=== PATIENT | female | born 1995 | race American Indian/Alaskan Native ===

== ENCOUNTER 2017-06-08 05:31 | Inpatient (IN) | payer MEDICAID ==
[2017-06-08] MEDS ORDERED: BRETHINE IVP PRN (06:15)
[2017-06-08] MEDS ORDERED: XYLOCAINE 2% INFILTRATI ONE (06:15)
[2017-06-08] MEDS ORDERED: SUBLIMAZE IV PRN (06:15)
[2017-06-08] MEDS ORDERED: STADOL IV PRN (06:15)
[2017-06-08] MEDS ORDERED: ePHEDrine SULFATE IV PRN (06:15)
[2017-06-08] MEDS ORDERED: MINERAL OIL PO PRN (06:15)
[2017-06-08] MEDS ORDERED: ZOFRAN IV PRN ×2 (06:15→11:16)
[2017-06-08] MEDS ORDERED: BRETHINE SUB-Q PRN (06:15)
[2017-06-08] MEDS ORDERED: LACTATED RINGERS 1,000 ML IV SCH (07:00)
[2017-06-08] MEDS ORDERED: PITOCin/NS 20 UNIT/1000ML DRIP 20 UNITS/1,000 ML BAG IV SCH (07:00)
[2017-06-08] MEDS ORDERED: PITOCin/NS 30 UNIT/500ML 30 UNITS/500 ML BAG IV SCH (07:00)
[2017-06-08 07:21] LABS: Hematocrit 40.7 % (30.3-42.9); Hemoglobin 13.6 gm/dl (10.1-14.3); Mean Corpuscular HGB Conc 33 % (30-34); Mean Corpuscular Hemoglobin 27 pg (28-32); Mean Corpuscular Volume 82 fl (79-97); Platelet Count 167 K/mm3 (140-440); Red Blood Count 4.95 M/mm3 (3.65-5.03); Red Cell Distribution Width 14.9 % (13.2-15.2); White Blood Count 5.5 K/mm3 (4.5-11.0)
--- NOTE | 2017-06-08 09:08 | Procedure Note ---
OB Delivery Note - Delivery Date of Delivery: 06/08/17 Surgeon: MARLEN COREY Estimated blood loss: other (150) - Vaginal Delivery presentation: vertex Delivery position: OA Intrapartum events: precipitous labor- <3hr Delivery induction: none Delivery monitor: external FHT, external uterine Route of delivery: Delivery placenta: spontaneous Delivery cord: nuchal cord, 3 umbilical vessels Episiotomy: none Delivery laceration: vaginal side wall Anesthesia: none Delivery comments: Viable male delivered precipitously over intact perineum weight 6 pounds 8 ounces. Apgars 9,9. Loose nuchal cord easily reduced on the perineum. Placenta delivered spontaneously and intact with 3vc. Small periurethral laceration was hemostatic. Patient tolerated procedure well. - Infant A at 1 minute: 9 at 5 minutes: 9 Infant Gender: Male
--- NOTE | 2017-06-08 09:16 | History and Physical Report ---
History of Present Illness Date of examination: 06/08/17 Date of admission: 06/08/17 06:31 Chief complaint: My water broke History of present illness: Patient is a 22 year old who presented to L&D with srom at 39.2 weeks. Patient has had an uncomplicated course and has been in care since first trimester. Past History Past Medical History: no pertinent history Past Surgical History: no surgical history Social history: single - Obstetrical History Expected Date of Delivery: 06/13/17 Actual Gestation: 39 Week(s) 2 Day(s) : 1 Medications and Allergies Allergies Allergy/AdvReac Type Severity Reaction Status Date / Time No Known Allergies Allergy Unverified 06/08/17 06:14 Active Meds: Active Medications Butorphanol Tartrate (Stadol) 2 mg IV Q2H PRN PRN Reason: Pain , Severe (7-10) Fentanyl (Sublimaze) 100 mcg IV Q2H PRN PRN Reason: Labor Pain Last Admin: 06/08/17 07:35 Dose: 100 mcg Lactated Ringer's (Lactated Ringers) 1,000 mls @ 125 mls/hr IV DIRECT JHON Last Admin: 06/08/17 07:35 Dose: 125 mls/hr Oxytocin/Sodium Chloride (Pitocin/Ns 20 Unit/1000ml Drip) 20 units in 1,000 mls @ 125 mls/hr IV DIRECT JHON Oxytocin/Sodium Chloride (Pitocin/Ns 30 Unit/500ml) 30 units in 500 mls @ 1 mls /hr IV TITR JHON; 1 MILLIUNITS/MIN PRN Reason: Protocol Mineral Oil (Mineral Oil) 30 ml PO QHS PRN PRN Reason: Constipation Ondansetron HCl (Zofran) 4 mg IV Q8H PRN PRN Reason: Nausea And Vomiting Review of Systems All systems: negative Genitourinary: leakage of fluid, contractions Rectal Exam: deferred - Vital Signs Vital signs: Vital Signs Pulse BP 104 H 119/74 06/08/17 05:41 06/08/17 05:41 Temp Pulse Resp BP Pulse Ox 97.1 F L 93 H 14 122/86 85 06/08/17 07:15 06/08/17 08:58 06/08/17 07:15 06/08/17 08:58 06/08/17 08:23 - Physical Exam Breasts: Cardiovascular: Regular rate, Normal S1, Normal S2 Lungs: Positive: Clear to auscultation, Normal air movement Abdomen: Positive: normal appearance, soft, normal bowel sounds. Negative: distention, tenderness Genitourinary (Female): Positive: normal external genitalia, normal perenium Vulva: both: normal Vagina: Positive: normal moisture. Negative: discharge Cervix: Negative: lesion, discharge Uterus: Positive: normal size, normal contour Adnexa: both: normal Anus/Rectum: Positive: normal perianal skin, heme negative. Negative: rectal mass, hemorrhoids Extremities: Deep Tendon Reflex Grade: Normal +2 - Obstetrical FHR: auscultation normal Cervical Dilatation: 3 Cervical Effacement Percentage: 90 station: -2 Uterine Contraction Frequency (min): 3 Uterine Contraction Pattern: Regular Uterine Tone Measurement Phase: Resting Uterine Contraction Intensity: Moderate Results Result Diagrams: 06/08/17 06:40 Abnormal lab results 06/08/17 Range/Units 06:40 MCH 27 L (28-32) pg All other labs normal.
[2017-06-08] MEDS ORDERED: SODIUM CHLORIDE FLUSH SYRINGE 10 ML IV NR (11:16)
[2017-06-08] MEDS ORDERED: BENADRYL PO PRN (11:16)
[2017-06-08] MEDS ORDERED: TUCKS PAD TP PRN (11:16)
[2017-06-08] MEDS ORDERED: PHENERGAN PO PRN (11:16)
[2017-06-08] MEDS ORDERED: TYLENOL PO PRN (11:16)
[2017-06-08] MEDS ORDERED: MILK OF MAGNESIA PO PRN (11:16)
[2017-06-08] MEDS ORDERED: PHENERGAN PR PRN (11:16)
[2017-06-08] MEDS ORDERED: DULCOLAX PR PRN (11:16)
[2017-06-08] MEDS ORDERED: LANSINOH TP PRN (11:16)
[2017-06-08] MEDS ORDERED: NORCO 5/325 PO PRN (11:16)
[2017-06-08] MEDS: COLACE PO SCH ×2 (12:29→22:59)
[2017-06-08] MEDS: PRENATAL VITAMIN PO SCH (12:30)
[2017-06-08] MEDS: MOTRIN PO SCH ×3 (12:30→22:59)
[2017-06-08 21:21] LABS: Hematocrit 30.1 % (30.3-42.9); Hemoglobin 9.9 gm/dl (10.1-14.3)
[2017-06-09] MEDS: MOTRIN PO SCH ×3 (05:23→16:48)
[2017-06-09] MEDS ORDERED: BOOSTRIX IM ONE (06:00)
[2017-06-09] MEDS: COLACE PO SCH (10:35)
[2017-06-09] MEDS: PRENATAL VITAMIN PO SCH (10:35)
--- NOTE | 2017-06-09 11:18 | Progress Note ---
Assessment and Plan PPD 1 s/p . Doing well. Plan for discharge on today. Subjective - Subjective Date of service: 06/09/17 Interval history: Patient is a 22 year old who presented to L&D with srom at 39.2 weeks. Patient has had an uncomplicated course and has been in care since first trimester. Patient reports: appetite normal, voiding normally, pain well controlled, ambulating normally : doing well Objective - Vital Signs Latest vital signs: Vital Signs Temp Pulse Resp BP 06/09/17 09:00 98.5 F 77 18 117/73 06/09/17 00:00 98.2 F 88 18 118/63 06/08/17 17:07 99.5 F 101 H 16 113/56 Intake and Output 06/08/17 06/09/17 06/09/17 22:59 06:59 14:59 Intake Total 120 360 Balance 120 360 Intake: Oral 120 360 Other: Total, Intake Amount 120 240 # Voids Void 1 1 - Exam Breasts: Present: deferred Cardiovascular: Present: Regular rate, Normal S1, Normal S2 Lungs: Present: Clear to auscultation Abdomen: Present: normal appearance, soft, normal bowel sounds Vulva: both: normal Uterus: Present: normal, firm Extremities: Present: normal Deep Tendon Reflex Grade: Normal +2 - Labs Labs: Abnormal lab results 06/08/17 Range/Units 20:57 Hgb 9.9 L D (10.1-14.3) gm/dl Hct 30.1 L D (30.3-42.9) %
--- NOTE | 2017-06-09 11:22 | Discharge Summary ---
Providers - Providers Date of Admission: 06/08/17 06:31 Date of discharge: 06/09/17 Attending physician: MARLEN COREY Primary care physician: MARLEN COREY Hospitalization Reason for admission: active labor Delivery: Discharge diagnosis: IUP at term delivered [place] baby: male Hospital course: unremarkable Condition at discharge: Good Disposition: DC-01 TO HOME OR SELFCARE Plan - Discharge Medications Prescriptions: Ibuprofen [Motrin] 600 mg PO Q6H PRN #40 tablet PRN Reason: Pain - Provider Discharge Summary Activity: routine, no sex for 6 weeks, no heavy lifting 4 weeks, no strenuous exercise Diet: routine Instructions: routine Additional instructions: [] Smoking cessation referral if applicable(refer to patient education folder for contact #) [] Refer to [facility] Call your doctor immediately for: * Fever > 100.5 * Heavy vaginal bleeding ( >1 pad per hour) * Severe persistent headache * Shortness of breath * Reddened, hot, painful area to leg or breast * Drainage or odor from incision. * Keep incision clean and dry at all times and follow doctor's instructions regarding bathing/showering - Follow up plan Follow up: AMRLEN COREY MD [Primary Care Provider] - 6 Weeks Forms: [facility] Discharge Summary
[2017-06-09] MEDS ORDERED: M-M-R II VACCINE SUB-Q ONE (17:00)
[2017-06-09 20:53] VITALS: BP 128/84
== END 2017-06-09 20:15 | disposition home or self-care (01) | DRG 775 ==
LOC: TRG 05:31 → LD 06:31 → OB 10:50
PROVIDERS: ADMIT Obstetrics & Gynecology; ATTEND Obstetrics & Gynecology
PROC: 10E0XZZ Delivery of Products of Conception, External Approach (ICD-10-PCS; principal; 2017-06-08)
DX: O62.3 Precipitate labor (principal); O69.81X0 Labor and delivery complicated by cord around neck, without compression, not applicable or unspecified; Z3A.39 39 weeks gestation of pregnancy; Z37.0 Single live birth; O71.82 Other specified trauma to perineum and vulva
CPT/HCPCS: 36415; 85014; 85018; 85027; 86850; 86900; 86901; 90471; 90715; 99211; A6250; G0463; J2590; J3010; J7120